=== PATIENT | male | born 1975 | race Caucasian/White ===

== ENCOUNTER 2018-06-17 06:28 | Day surgery (SDC) | payer BC ==
--- NOTE | 2018-06-11 14:06 | HP ---
PREOPERATIVE HISTORY AND PHYSICAL: DATE OF SURGERY/ADMISSION: 06/17/18 [facility] DATE OF OFFICE VISIT/ENCOUNTER: 06/05/18 ATTENDING SURGEON: Annabelle Singh MD.* (DICTATED BY LINDA FORD) PROCEDURE: Excision hook of hamate fracture; possible ganglion cyst excision, left wrist. CHIEF COMPLAINT: Left wrist pain. HISTORY OF PRESENT ILLNESS: This is a 42-year-old male who complains of pain in his left hand/wrist for the past 3 to 4 months. He does not recall any specific injury, but he does play ice hockey and golf quite regularly, both of which place pressure into the palm of his hand. He feels a shooting pain and has had numbness at times. He has pain with gripping. He has had to modify his activities because of this problem. He has failed conservative treatment including physical therapy. 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 He has consented to proceed with surgical intervention at this time. PAST MEDICAL HISTORY: Unremarkable. PAST SURGICAL HISTORY: None. CURRENT MEDICATIONS: None. ALLERGIES: No known drug allergies. FAMILY MEDICAL HISTORY: Heart disease. SOCIAL HISTORY: The patient is employed at [employer]. He is a former smoker. He quit in 1995. Prior to that, he smoked half-a-pack a day for 6 years. He denies recreational drug use. He drinks alcohol on occasion. REVIEW OF SYSTEMS: Negative for general, cephalic, cardiovascular, respiratory , GI, , other musculoskeletal, integumentary, endocrine, neurologic, and hematologic symptoms. Infectious disease negative for MRSA, hepatitis C, HIV. PHYSICAL EXAMINATION GENERAL: Well-developed, well-nourished 42-year-old male, in no acute distress. VITAL SIGNS: Height 5 feet 8 inches, weight 175 pounds. Blood pressure 110/64. HEENT: Normocephalic, atraumatic. Pupils are equal, round, and reactive to light and accommodation. Extraocular movements are intact. Throat is clear. NECK: Supple. No palpable lymph nodes. PULMONARY: Lungs are clear to auscultation bilaterally. No wheezes, rales, or rhonchi. CARDIOVASCULAR: Regular rate and rhythm. S1, S2. No murmurs, rubs, or gallops. No edema. ABDOMEN: Positive bowel sounds. Soft, nontender. NEUROLOGICAL: Alert and oriented x3. Cranial nerves II through XII are intact. Sensation is intact to light touch. MUSCULOSKELETAL: On exam of his left hand, he has tenderness to palpation in the hypothenar eminence and also small cystic mass that appears when you press on this area. He can flex and extend his fingers well. He has no neurovascular deficit. He can make a full fist. He has slight increased symptoms when he squeezes his cyst tight. His wrist motion is normal. IMAGING STUDIES: X-rays: AP, lateral and oblique, and a carpal tunnel view appeared normal except for on the carpal tunnel view, there is evidence of a hook of the hamate nonunion. IMPRESSION: 1. Left hand hook of hamate nonunion. 2. Possible cyst. PLAN: The patient is scheduled to undergo an excision hook of hamate fracture; possible ganglion cyst excision, left wrist, with Dr. Singh on 06/17/18. He will follow up in the office in 10 days postop for follow up and suture removal. A prescription for Ultracet was e-scribed to the patient's pharmacy for postoperative pain management. LINDA FORD [id number]/[facility] #: [id number] MAK
[~2018-06-17 06:28] MED LIST: Buffered Lidocaine 1% SYRIN* 1 ML/SYRINGE INTRADERM ONE; Lactated Ringers 1000 ML Bag* 1,000 ML IV SCH; Sodium Citrate/Citric Acid* 15 ML UDC PO ONE
[2018-06-17] MEDS ORDERED: Sodium Citrate/Citric Acid* 15 ML UDC ONE (06:39)
[2018-06-17] MEDS ORDERED: Lidocaine 1% INJ* 10 MG/ML 30 ML SDV ONE (07:14)
[2018-06-17] MEDS ORDERED: Midazolam* 1 MG/ML 5 ML VIAL (5 MG) ONE (07:32)
[2018-06-17] MEDS ORDERED: Lidocaine 0.5%* 50 ML SDV ONE (07:32)
[2018-06-17] MEDS ORDERED: Bupivacaine 0.5% PF 10 ML VIAL INJ ONE (08:00)
[2018-06-17] MEDS ORDERED: Midazolam* 1 MG/ML 2 ML VIAL (2 MG) ONE (08:02)
[2018-06-17] MEDS ORDERED: Propofol* 10 MG/ML 20 ML BTL ONE (08:08)
[2018-06-17] MEDS ORDERED: Naloxone* 0.4 MG/ML 1 ML VIAL IV PRN (08:16)
[2018-06-17 09:34] VITALS: BP 128/90
--- NOTE | 2018-06-17 11:39 | OP ---
DATE OF OPERATION: 06/17/18 [facility] DATE OF : 73 SURGEON: Annabelle Singh MD. GRANULATOR: LINDA Alba. ANESTHESIA: IV regional. PRE-OP DIAGNOSIS: Left wrist hook of hamate nonunion and cyst. POST-OP DIAGNOSIS: Left wrist hook of hamate nonunion and cyst. OPERATIVE PROCEDURE: Removal of hook of hamate nonunion of the left wrist and mass excision, left wrist. ESTIMATED BLOOD LOSS: Zero. TOURNIQUET TIME: About 30 minutes. INDICATIONS FOR PROCEDURE: Elijah is a 42-year-old male with persistent pain in his left wrist. X-ray shows a hook of hamate nonunion. He also has small cystic mass overlying the flexor carpi ulnaris tendon. He presents for removal of both. DESCRIPTION OF PROCEDURE: The patient was brought to the operating room and was given an IV regional anesthetic with a tourniquet around his left forearm. Skin of his left hand and forearm was prepped and draped in the usual sterile fashion. A zigzag incision was made over the wrist creases and over the hypothenar eminence, we dissected bluntly through the subcutaneous tissue. The ulnar neurovascular bundle was located and was retracted ulnarly. The hook of hamate was then easily located and subperiosteally dissected from the overlying tissue, it was removed in a solid piece. The wound was then extended proximally over the FCU tendon and there was a small cystic mass, probably a ganglion cyst, emanating from the FCU tendon sheath, this was removed and both were sent for pathology. The wound was irrigated and skin edges reapproximated with 4-0 nylon suture. The wound was dressed with Xeroform, 4x4, Webril, and an Vikram wrap. The patient tolerated the procedure well and was brought to the recovery room in good condition. [id number]/[facility] #: [id number] [facility] CENTERFredy
== END 2018-06-17 09:28 | disposition home or self-care (01) ==
LOC: OREAST 06:28
PROVIDERS: ATTEND Orthopaedic Surgery
DX: S62.152A Displaced fracture of hook process of hamate [unciform] bone, left wrist, initial encounter for closed fracture (principal); X58.XXXA Exposure to other specified factors, initial encounter; Y92.9 Unspecified place or not applicable; Z87.891 Personal history of nicotine dependence; D36.10 Benign neoplasm of peripheral nerves and autonomic nervous system, unspecified
CPT/HCPCS: 88304; 88311; A9270-GY; J2250; J2704